=== PATIENT | male | born 1985 | race Two or more races ===

== ENCOUNTER 2017-01-09 18:38 | Emergency (ER) | payer SELFPAY ==
--- NOTE | 2017-01-09 19:08 | EDM.PDOC ---
ED HPI GENERAL MEDICAL PROBLEM - General Chief Complaint: Skin Complaint Stated Complaint: SPIDER BITE Time Seen by Provider: 01/09/17 18:48 Source of Information: Reports: Patient - History of Present Illness INITIAL COMMENTS - FREE TEXT/NARRATIVE: Patient is here today for evaluation for a sore to his left upper arm. He states that he noticed this approximately one week ago. He states that this initially started and appeared like a pimple. He did squeeze it and some drainage came out, he states that he has been doing that almost every day. He states that he feels it is getting larger. Patient is diabetic, states that his blood sugars have been under good control. He is not from [place], only appeared temporarily working for the [employer] and will return to [place] in February. Eyes any other chronic medical conditions. Treatments ADMINISTRATIVE SUPPORT SPECIALIST: Reports: Other (see below) Other Treatments ADMINISTRATIVE SUPPORT SPECIALIST: none Left Upper Arm Pain Score (Numeric/FACES): 3 - Related Data Allergies Allergy/AdvReac Type Severity Reaction Status Date / Time No Known Allergies Allergy Verified 01/09/17 18:47 Home Meds: Home Meds Levothyroxine 0 mcg PO DAILY 01/09/17 [History] Sulfamethoxazole/Trimethoprim [Bactrim Ds Tablet] 1 each PO BID #20 tablet 01/09 [Rx] metFORMIN [Glucophage XR] 500 mg PO BID 01/09/17 [History] Past Medical History Endocrine/Metabolic History: Reports: Diabetes, Type II, Hypothyroidism Social & Family History - Tobacco Use Smoking Status *Q: Never Smoker - Caffeine Use Caffeine Use: Reports: Energy Drinks - Recreational Drug Use Recreational Drug Use: No ED ROS GENERAL - Review of Systems Review Of Systems: See Below Constitutional: Reports: No Symptoms Respiratory: Reports: No Symptoms Cardiovascular: Reports: No Symptoms Skin: Reports: Erythema, Wound, Change in Color ED EXAM, SKIN/RASH Exam: See Below Exam Limited By: No Limitations General Appearance: Alert, WD/WN, No Apparent Distress Respiratory/Chest: No Respiratory Distress, Lungs Clear, Normal Breath Sounds Cardiovascular: Regular Rate, Rhythm, No Murmur Extremities: Other (Abscess to left upper arm. There is open area where it had been draining previously, not current purulent drainage. Surrounding warmth and erythema for a diameter of approximately 2 cm.) Neurological: Alert, Oriented Psychiatric: Normal Affect, Normal Mood Course - Vital Signs Last Recorded V/S: Last Vital Signs Temp 98.5 F 01/09/17 18:52 Pulse 68 01/09/17 18:52 Resp 20 01/09/17 18:52 BP 111/47 L 01/09/17 18:52 Pulse Ox 94 L 01/09/17 18:52 - Re-Assessments/Exams Free Text/Narrative Re-Assessment/Exam: Infected abscess to left upper arm. Patient is diabetic but reportedly under good control. Will treat with Bactrim twice a day 10 days, I recommended probiotic with this. Advised patient that he should follow-up next week in clinic if not improving or certainly return sooner if worsening or fever greater than 101. Patient verbalized understanding of this. 01/09/17 19:10 Departure - Departure Time of Disposition: 19:07 Disposition: Home, Self-Care 01 Condition: Good Clinical Impression: Abscess - Discharge Information Prescriptions: Sulfamethoxazole/Trimethoprim [Bactrim Ds Tablet] 1 each PO BID #20 tablet Referrals: PCP,None [Primary Care Provider] - Forms: ED Department Discharge Additional Instructions: Keep area clean and dry. Apply hot compresses and pressure several times daily to keep this draining. Take full course of antibiotic, I recommend a probiotic with this to prevent diarrhea. Follow-up with Jad Yu PA-C in clinic ([phone]) if this does not improve significantly over the weekend or if any worsening. If you have significant worsening or fever greater than 101 then you should return to ER.
== END 2017-01-09 19:20 | disposition home or self-care (01) ==
LOC: JD.ED 18:38
DX: L02.414 Cutaneous abscess of left upper limb (principal); E11.9 Type 2 diabetes mellitus without complications; Z79.899 Other long term (current) drug therapy
CPT/HCPCS: 87070; 87077; 87186; 99283

== ENCOUNTER 2017-02-12 19:16 | Emergency (ER) | payer SELFPAY ==
[2017-02-12] MEDS ORDERED: Bupivacaine 0.5% 10 ML SDV INJECT ONE (19:40)
[2017-02-12] MEDS ORDERED: Lidocaine 1% with EPINEPHrine 1:100,000 20 ML MDV INJECT ONE (19:40)
--- NOTE | 2017-02-12 22:07 | EDM.PDOC ---
ED HPI GENERAL MEDICAL PROBLEM - General Chief Complaint: Skin Complaint Stated Complaint: BOIL ON NECK Time Seen by Provider: 02/12/17 19:22 Source of Information: Reports: Patient, RN Notes Reviewed History Limitations: Reports: No Limitations - History of Present Illness INITIAL COMMENTS - FREE TEXT/NARRATIVE: The patient states that he developed a boil on his anterior right neck this past 02/07/2017. He has not attempted any home remedies or treatments. The boil has not drained. He has not had a recent fever. No prior similar symptoms. The patient's PCP is in [place], [place]. Right Neck Pain Score (Numeric/FACES): 6 - Related Data Allergies Allergy/AdvReac Type Severity Reaction Status Date / Time No Known Allergies Allergy Verified 02/12/17 19:25 Home Meds: Home Meds Levothyroxine 0 mcg PO DAILY 01/09/17 [History] metFORMIN [Glucophage XR] 500 mg PO BID 01/09/17 [History] Past Medical History Endocrine/Metabolic History: Reports: Diabetes, Type II, Hypothyroidism - Past Surgical History GI Surgical History: Reports: Other (See Below) (Exploratory laparoscopy) Social & Family History - Tobacco Use Smoking Status *Q: Former Smoker Tobacco Use Within Last Twelve Months: Other (See Below) (Now vapes) Years of Tobacco use: 9 Packs/Tins Daily: 0.3 Month Tobacco Last Used: Quit 2012 - Caffeine Use Caffeine Use: Reports: None - Alcohol Use Alcohol Use History: Yes Alcohol Use Frequency: Socially - Recreational Drug Use Recreational Drug Use: Yes Drug Use in Last 12 Months: No Recreational Drug Type: Reports: Cocaine, Ecstasy, Marijuana/Hashish Recreational Drug Last Use: Last around 2004 - Living Situation & Occupation Living situation: Reports: Single, Other (with friends) Occupation: Employed (Assistant Finance Manager) ED ROS GENERAL - Review of Systems Review Of Systems: See Below Constitutional: Reports: No Symptoms HEENT: Reports: No Symptoms Respiratory: Reports: No Symptoms Cardiovascular: Reports: No Symptoms Endocrine: Reports: No Symptoms GI/Abdominal: Reports: No Symptoms : Reports: No Symptoms Musculoskeletal: Reports: No Symptoms Skin: Reports: No Symptoms Neurological: Reports: No Symptoms Psychiatric: Reports: No Symptoms Hematologic/Lymphatic: Reports: No Symptoms Immunologic: Reports: No Symptoms ED EXAM, SKIN/RASH Exam: See Below Exam Limited By: No Limitations General Appearance: Alert, WD/WN, No Apparent Distress Skin: Warm, Dry, Intact, Normal Color, No Rash, Tattoo(s) (on scalp. neck, arms) , Other (There is a firm nodule measuring approximately 2 cm diameter on the anterior right neck, over the inferior aspect of the right sternocleidomastoid. No fluctuance to palpation. Minimal tenderness. The lesion is "pointing" however , there is no fluid drainage. No associated erythema or suggestion of associated cellulitis.) ED SKIN PROCEDURES - I&D Site: Left anterior neck Skin Prep: Providone-Iodine (Betadine) Local Anesthesia: Lidocaine: 1% with EPI Local Anesthesia - Bupivicaine (Marcaine): 0.5% Plain Local Anesthetic Volume: 1cc Area Incised With: 15 Blade Drainage: Other (None) Probed to Break Up Loculations: Yes Packed With: None Sterile Dressing: Adhesive Dressing Complications: No Progress/Comments: Wound closed with 2 simple interrupted sutures of 3-0 Ethilon. Course - Vital Signs Last Recorded V/S: Last Vital Signs Temp 36.4 C 02/12/17 19:21 Pulse 87 02/12/17 19:21 Resp 18 02/12/17 19:21 BP 132/77 02/12/17 19:21 Pulse Ox 95 02/12/17 19:21 - Orders/Labs/Meds Meds: Medications Discontinued Medications Generic Name Dose Route Start Last Admin Trade Name Lyudmila PRN Reason Stop Dose Admin Bupivacaine HCl 10 ml 02/12/17 19:40 02/12/17 20:25 Sensorcaine-Mpf 0.5% INJECT 02/12/17 19:41 10 ml ONETIME ONE Administration Lidocaine/Epinephrine 20 ml 02/12/17 19:40 02/12/17 20:25 Xylocaine 1% With Epinephrine 1:100,000 INJECT 02/12/17 19:41 20 ml ONETIME ONE Administration - Re-Assessments/Exams Free Text/Narrative Re-Assessment/Exam: 02/12/17 22:03 The site was prepped with Betadine, then a sterile field created with sterile towels. The site was infiltrated with 1 mL of a 50:50 admixture of lidocaine 1% with epinephrine and bupivacaine 0.5% without epinephrine. An approximately 1.5 cm incision was made over the mass, however, no purulent drainage emanated. The site was squeezed and probed with a cotton swab, but no fluid emanated. The site was then closed with 2 simple interrupted sutures of 3-0 Ethilon. A Band- Aid will be applied over the area. The patient tolerated procedure well. The cause of the neck mass is not known. I don't believe this is a lymph node. I will refer the patient to Dr. Abisai Ratliff for further evaluation, that may include a biopsy of the mass. Departure - Departure Time of Disposition: 22:06 Disposition: Home, Self-Care 01 Condition: Good Clinical Impression: Neck mass - Discharge Information Referrals: PCP,None [Primary Care Provider] - Abisai Ratliff MD [Physician] - Forms: ED Department Discharge Additional Instructions: You were seen in the emergency room for a lump on the front right of your neck. The wound was incised in the ER, however, no purulent fluid came out. The wound was closed with 2 stitches. Keep the wound clean with ordinary soap and water. Pat dry, then apply a clean Band-Aid, daily. Follow-up with the Surgeon Dr. Abisai Ratliff early this coming week for further evaluation. If any other problems, please do not hesitate to return to the ER.
== END 2017-02-12 22:15 | disposition home or self-care (01) ==
LOC: JD.ED 19:16
DX: R22.1 Localized swelling, mass and lump, neck (principal); E11.9 Type 2 diabetes mellitus without complications; E03.9 Hypothyroidism, unspecified; Z79.84 Long term (current) use of oral hypoglycemic drugs; Z79.899 Other long term (current) drug therapy; Z87.891 Personal history of nicotine dependence
CPT/HCPCS: 10060; 99283-25